=== PATIENT | female | born 1995 | race Asian ===

== ENCOUNTER 2020-10-04 10:11 | Emergency (ER) | payer OTHER ==
--- NOTE | 2020-10-04 10:49 | ED Physician Documentation ---
PD HPI FEMALE - Stated complaint Stated Complaint: FEMALE - Chief complaint Chief Complaint: Abd Pain - History obtained from History obtained from: Patient - History of Present Illness Timing - onset: How many days ago (3) Timing - duration: Days (3) Timing - details: Gradual onset, Still present Pain level max: 10 Pain level max: 8 Associated symptoms: Pelvic pain, Urinary frequency Contributing factors: No: Similar symptoms before: Has not had sx before Recently seen: Not recently seen - Additional information Additional information: Previously well 25-year-old female has developed some pelvic cramping 3 days ago which improved with some medications and last night after intercourse she developed severe pain she was up most of the night unable to get comfortable her pain now is much improved from what it was last night and still an 8 out of 10. She was unable to straighten up fully and she is able to stand and walk now without difficulty. She believes she is somewhere in the middle of her cycle.She has not had these symptoms previously and she has not been ill recently. She does acknowledge urinary frequency. Review of Systems Constitutional: denies: Fever Eyes: denies: Decreased vision Ears: denies: Ear pain Nose: denies: Congestion Throat: denies: Sore throat Cardiac: denies: Chest pain / pressure, Palpitations Respiratory: denies: Dyspnea, Cough GI: denies: Abdominal Pain, Nausea, Vomiting : reports: Frequency, Other (pelvic pain). denies: Dysuria Skin: denies: Rash PD PAST MEDICAL HISTORY - Past Medical History Past Medical History: No - Past Surgical History Past Surgical History: No - Present Medications Home Medications: Ambulatory Orders Medication Instructions Recorded Confirmed HYDROcod/ACETAM 5/325 [Muse 5/325] 1 - 2 tablet PO Q6H PRN #14 tablet 10/04/20 - Allergies Allergies/Adverse Reactions: Allergies Allergy/AdvReac Type Severity Reaction Status Date / Time No Known Drug Allergies Allergy Verified 10/04/20 10:19 - Social History Does the pt smoke?: No Smoking Status: Never smoker Does the pt drink ETOH?: Yes Does the pt have substance abuse?: No - Immunizations Immunizations are current?: No - POLST Patient has POLST: No PD ED PE NORMAL - Vitals Vital signs reviewed: Yes (normal ) - General General: Alert and oriented X 3, No acute distress, Well developed/nourished - HEENT HEENT: Atraumatic, PERRL, EOMI - Neck Neck: Supple, no meningeal sign, No bony TTP - Cardiac Cardiac: RRR, No murmur - Respiratory Respiratory: No respiratory distress, Clear bilaterally - Abdomen Abdomen: Normal bowel sounds, Soft, Non distended, No organomegaly, Other (Suprapubic tenderness without guarding and generalized lower abdomen tenderness.) Results - Vitals Vitals: Vital Signs - 24 hr 10/04/20 10/04/20 10/04/20 10:13 10:31 12:18 Temperature 36.7 C Heart Rate 87 85 90 Respiratory 16 16 16 Rate Blood Pressure 109/68 123/75 112/63 O2 Saturation 98 99 97 Oxygen O2 Source Room air - Rads (name of study) pelvic ultrasound Radiology: Prelim report reviewed (Impression: 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 No sign of abnormal endometrial fluid collection or uterine fibroids. Normal-appearing right ovary. There is a complex cyst moderately enlarged left ovary with a cyst measuring up to 3.5 cm with internal septations. ), Final report received ( Follow-up assessment by pelvic ultrasound is recommended in 6 to 8 weeks to confirm resolution of the complex cyst. No definite acute disease.), EMP read indepedently, See rad report PD MEDICAL DECISION MAKING - ED course Complexity details: reviewed results, re-evaluated patient, considered differential, d/w patient ED course: 25-year-old female with acute pelvic pain midcycle appears to have a complex ovarian cyst her pain is improved without further treatment but is not resolved. I discussed the natural history of pain from ovarian cyst and expectations that she has resolution. She will follow up with her primary. Departure - Departure Disposition: Home, Self Care Clinical Impression: Cyst of ovary Qualifiers: Laterality: left Qualified Code(s): N83.202 - Unspecified ovarian cyst, left side Condition: Stable Instructions: ED Cyst Ovarian Follow-Up: MIHAI Collier [Provider Group] Prescriptions: HYDROcod/ACETAM 5/325 [Muse 5/325] 1 - 2 tablet PO Q6H PRN #14 tablet PRN Reason: Pain Forms: Activity restrictions Discharge Date/Time: 10/04/20 12:19
[2020-10-04 12:19] VITALS: BP 112/63
--- NOTE | 2020-10-04 12:52 | Ultrasound Report ---
PROCEDURE: Pelvic w/Transvag+Doppler Comp INDICATIONS: mid cycle pelvic pain severe TECHNIQUE: Real-time scanning was performed of the pelvic organs, with image documentation. Additional endovagi nal scanning was necessary due to incomplete visualization of the adnexal and endometrial structures by transabdominal scanning. COMPARISON: None. FINDINGS: No pathologic free abdominal or pelvic fluid. Uterus: Uterus is retroverted and is normal in size at 4.0 x 4.4 x 7.1 cm. The endometrium measures 11.3 mm in combined thickness. No abnormal endometrial fluid collection or mass is seen. No uterine fibroid is suspected. Note was made of a arcuate morphology of the upper uterine margin. Ovaries: The right ovary measures 3.8 x 2.1 x 2.8 cm, the left ovary measured larger, up to 6.3 x 3. 4 x 3.7 cm with associated simple and complex cysts. The simple cyst present measures 1.7 x 1.4 x 2.0 cm. The more complex cyst with septations measures 3.5 x 1.9 x 2.5 cm. 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 No sign of abnormal endometrial fluid collection or uterine fibroids. Normal-appearing right ovary. There is a complex cyst moderately enlarging the l eft ovary with the cyst measuring up to 3.5 cm with internal septations. Follow-up assessment by pelv ic ultrasound is recommended in 6-8 weeks to confirm resolution of the complex cyst. No definite acut e disease. Reviewed by: Russ Humphreys MD on 10/04/2020 12:51 PM PDT Approved by: Russ Humphreys MD on 10/04/2020 12:51 PM PDT Station ID: [id number]
== END 2020-10-04 12:19 | disposition home or self-care (01) ==
LOC: ED 10:11
DX: N83.292 Other ovarian cyst, left side (principal)
CPT/HCPCS: 93975; 99284

== ENCOUNTER 2021-02-11 18:17 | Outpatient (CLI) | payer OTHER ==
--- NOTE | 2021-02-11 23:49 | XRAY Report ---
PROCEDURE: Chest 2 View X-Ray INDICATIONS: UNSPECIFIED BACTERIAL PNEUMONIA TECHNIQUE: 2 views of the chest. COMPARISON: None. FINDINGS: Surgical changes and devices: None. Lungs and pleura: No pleural effusions or pneumothorax. Lungs are clear. Mediastinum: Mediastinal contours are normal. Heart size is normal. Bones and chest wall: No suspicious bony abnormalities. Soft tissues appear unremarkable. IMPRESSION: No acute cardiopulmonary abnormality. Reviewed by: Preet Burns MD on 02/11/2021 11:47 PM PDT Approved by: Preet Burns MD on 02/11/2021 11:47 PM PDT Station ID: [id number]
== END 2021-02-11 23:59 | disposition home or self-care (01) ==
LOC: DI.N 18:17
PROVIDERS: ATTEND Physician Assistant Medical
DX: J15.9 Unspecified bacterial pneumonia (principal); Z20.822 Contact with and (suspected) exposure to COVID-19

== ENCOUNTER 2021-02-18 08:00 | Outpatient (CLI) | payer OTHER | END 2021-02-18 23:59 | disposition home or self-care (01) | LOC: LAB.N 08:00 | PROVIDERS: ATTEND Physician Assistant Medical | DX: R05 Cough (principal); Z20.822 Contact with and (suspected) exposure to COVID-19 ==